=== PATIENT | female | born 1990 | race African-American/Black ===

== ENCOUNTER 2016-08-01 08:20 | Emergency (ER) | payer BC ==
--- NOTE | ~2016-08-01 | EKG ---
PATIENT: BRITTANY SPICER UNIT #: [id number] Ventricular Rate: 66 BPM Atrial Rate: 66 BPM P-R Interval: 158 ms QRS Duration: 74 ms Q-T Interval: 382 ms QTC Calculation(Bezet): 400 ms P [place]: 25 degrees Calculated R [place]: 35 degrees Calculated T [place]: 33 degrees Diagnosis Line: Sinus rhythm with marked sinus arrhythmia Diagnosis Line: Low voltage QRS Diagnosis Line: Borderline ECG Diagnosis Line: No previous ECGs available Diagnosis Line: Confirmed by SMITH ORELLANA MD ([id number]) on Diagnosis Line: 08/02/2016 10:52:45 AM INTERPRETING MD: [id number]
[2016-08-01 08:52] LABS: URINE SOURCE CLEAN CATCH
[2016-08-01 09:05] LABS: BASOPHIL% 0.7 % (0-2.5); EOSINOPHIL# 0.1 X10e3 (0-0.7); EOSINOPHIL% 2.2 % (0.0-7.0); HEMATOCRIT 26.5 % (35.0-45.0); LYMPHOCYTE# 1.4 X10e3 (1.0-3.5); LYMPHOCYTE% 32.6 % (17.0-45.0); MEAN CELL VOLUME 62.9 FL (83-96); MEAN CORPUSCULAR HGB CONC 30.2 g/dL (30-36); MEAN PLATELET VOLUME 8.1 FL (6.5-11.5); MONOCYTE# 0.3 X10e3 (0-1.0); MONOCYTE% 7.5 % (3.0-12.0); NEUTROPHIL# 2.5 X10e3 (1.5-7.1); PLATELET COUNT 398 X10e3 (140-420); RED BLOOD COUNT 4.21 X10e (3.90-5.30); RED CELL DISTRIBUTION WIDTH 17.3 % (11.0-15.5); WHITE BLOOD COUNT 4.4 X10e3 (4.0-10.5)
[2016-08-01 09:07] LABS: DIFF IND NO
[2016-08-01 09:11] LABS: URINE APPEARANCE CLEAR; URINE BILIRUBIN NEG (NEG); URINE BLOOD NEG (NEG); URINE COLOR YELLOW; URINE GLUCOSE NEG (NEG); URINE KETONE NEG (NEG); URINE LEUKOCYTE ESTERASE TRACE (NEG); URINE NITRATE NEG (NEG); URINE PROTEIN NEG (NEG); URINE SPECIFIC GRAVITY 1.004 (1.003-1.035); URINE UROBILINOGEN 0.2 MG/DL (NEG)
[2016-08-01 09:13] LABS: URBCS1 AUWI 0-2 /[HPF] (0-2); URINE BACTERIA AUWI NEG (NEGATIVE); URINE SQUAMOUS EPITHELIAL CELL OCC /[HPF]
[2016-08-01 09:20] LABS: ALBUMIN SERUM 3.9 g/dL (3.5-5.0); ALKALINE PHOSPHATASE 40 U/L (32-92); ALT (SGPT) 10 U/L (10-40); AST (SGOT) 20 U/L (10-42); BILIRUBIN,TOTAL 0.4 mg/dL (0.2-2.0); BLOOD UREA NITROGEN 14 mg/dL (9-23); CALCIUM SERUM 8.3 mg/dL (8.4-10.2); CARBON DIOXIDE 26 mmol/L (22-31); CHLORIDE 108 mmol/L (100-111); CREATININE SERUM 0.7 mg/dL (0.6-1.4); GLOM FILT RATE Estimated 139.6 mL/min (>60); GLUCOSE FASTING 76 mg/dL (70-110); POTASSIUM 3.3 mmol/L (3.5-5.1); PROTEIN TOTAL SERUM 7.4 g/dL (6.0-8.3); SODIUM 137 mmol/L (135-145)
[2016-08-01 09:20] LABS: CULTURE INDICATED? NO
[2016-08-01 09:22] LABS: BILIRUBIN, DIRECT <0.1 mg/dL (0.0-0.2); BILIRUBIN,INDIRECT 0.3 mg/dL (0.0-0.9)
[2016-08-01 09:23] LABS: URINE AMORPHOUS SEDIMENT AMORP URATES
[2016-08-01 09:32] LABS: AMPHETAMINE NEG (NEG); BARBITURATES NEG (NEG); BENZODIAZEPINES NEG (NEG); COCAINE NEG (NEG); MARIJUANA NEG (NEG); OPIATES NEG (NEG); TRICYCLIC ANTIDEPRESSANTS NEG (NEG); U METHADONE NEG (NEG)
== END 2016-08-01 11:07 | disposition home or self-care (01) ==
LOC: CED 08:20
PROVIDERS: Emergency Medicine
DX: D64.9 Anemia, unspecified (principal); E03.9 Hypothyroidism, unspecified
CPT/HCPCS: 36415; 80048; 80076; 80307; 81003; 84443; 85025; 93005; 99284